=== PATIENT | male | born 1995 | race Caucasian/White ===

== ENCOUNTER 2022-01-21 09:00 | Inpatient (IN) | payer SELFPAY ==
[~2022-01-21] VITALS: Ht 182.9 cm; Wt 61.2 kg
[2022-01-21] MEDS ORDERED: KETOROLAC 30MG/ML VIAL IV STA (09:26)
[2022-01-21] MEDS ORDERED: ONDANSETRON HCL 4MG/2ML INJ IV ONE (09:30)
[2022-01-21] MEDS ORDERED: SODIUM CHLORIDE 0.9% 1,000 ML IV ONE (09:30)
[2022-01-21 09:51] LABS: BASOPHILS % 0.4 % (0.0-2.0); EOSINOPHILS % 0.1 % (0.0-5.0); HEMATOCRIT. 40.9 % (42.0-52.0); HEMOGLOBIN. 13.7 g/dL (14.0-18.0); LYMPHOCYTES % 10.7 % (20.0-50.0); MEAN CORPUSCULAR HEMOGLOBIN 30.2 pg (28.0-32.0); MEAN CORPUSCULAR VOLUME 89.9 fL (80.0-94.0); MEAN PLATELET VOLUME 8.7 fl (7.4-10.4); MONOCYTES % 6.7 % (2.0-8.0); NEUTROPHILS % 82.1 % (40.0-76.0); PLATELET 272 x1000/uL (130-400); RED BLOOD CELL COUNT 4.55 mill/uL (4.7-6.1); RED CELL DISTRIBUTION WIDTH 13.9 % (11.6-14.6)
[2022-01-21 09:58] LABS: CHLORIDE 102 mEq/L (98-107)
[2022-01-21] MEDS ORDERED: KCL 20MEQ/100ML PREMIX 100 ML IV ONE (10:45)
[2022-01-21] MEDS ORDERED: MAGNESIUM 1 G PREMIX 100 ML IV ONE (10:45)
[2022-01-21] MEDS ORDERED: POTASSIUM CHLORIDE 20MEQ TABLET SR PO ONE (11:15)
[2022-01-21 12:17] LABS: CLARITY URINE CLOUDY (CLEAR); COLOR URINE YELLOW (YELLOW); KETONES URINE 4+ (NEGATIVE); LEUKOCYTE ESTERASE URINE TRACE (NEGATIVE); NITRITE URINE NEGATIVE (NEGATIVE); OCCULT BLOOD URINE NEGATIVE (NEGATIVE); PH URINE 6.5 (4.5-8.0); PROTEIN URINE 1+ (NEGATIVE)
[2022-01-21] MEDS ORDERED: CEFTRIAXONE 1 G PREMIX 50 ML IV ONE (13:00)
[2022-01-21] MEDS ORDERED: KETOROLAC 30MG/ML VIAL IV PRN (15:45)
[2022-01-21] MEDS ORDERED: ONDANSETRON HCL 4MG/2ML INJ IV PRN (15:45)
[2022-01-21] MEDS ORDERED: CLONIDINE 0.1MG TABLET PO PRN (15:45)
[2022-01-21] MEDS ORDERED: DIPHENHYDRAMINE 50MG/ML VIAL IV PRN (15:45)
[2022-01-21] MEDS ORDERED: ZOLPIDEM TARTRATE 5MG TABLET PO PRN (15:45)
[2022-01-21] MEDS ORDERED: ACETAMINOPHEN 325MG TABLET PO PRN ×2 (15:45)
[2022-01-21] MEDS: KCL 20MEQ/100ML PREMIX 100 ML IV SCH ×2 (16:00→18:00)
[2022-01-21 18:00] VITALS: BP 112/63
[2022-01-21] MEDS: SODIUM CHLORIDE 0.9% 1,000 ML IV SCH (19:40)
[2022-01-21 20:00] VITALS: BP 110/73
[2022-01-21] MEDS ORDERED: POTASSIUM CHLORIDE INJ 40 MEQ in DEXT 5% WATER 250 ML IV NR (22:00)
[2022-01-21] MEDS: PANTOPRAZOLE SODIUM 40 MG/VIAL IV SCH (22:01)
[2022-01-22] VITALS: BP_SYST 100; BP_SYST 132; BP_DIAS 50; BP_DIAS 54
[2022-01-22 03:41] VITALS: BP 96/53
[2022-01-22 07:09] LABS: BASOPHILS % 0.7 % (0.0-2.0); EOSINOPHILS % 1.5 % (0.0-5.0); HEMATOCRIT. 39.6 % (42.0-52.0); LYMPHOCYTES % 25.5 % (20.0-50.0); MEAN CORPUSCULAR HEMOGLOBIN 29.7 pg (28.0-32.0); MEAN CORPUSCULAR VOLUME 90.6 fL (80.0-94.0); MEAN PLATELET VOLUME 9.4 fl (7.4-10.4); MONOCYTES % 8.7 % (2.0-8.0); NEUTROPHILS % 63.6 % (40.0-76.0); PLATELET 248 x1000/uL (130-400); RED BLOOD CELL COUNT 4.38 mill/uL (4.7-6.1); RED CELL DISTRIBUTION WIDTH 13.8 % (11.6-14.6)
[2022-01-22 07:29] LABS: CHLORIDE 105 mEq/L (98-107)
[2022-01-22 07:40] LABS: PHOSPHORUS 2.2 mg/dL (2.5-4.9)
[2022-01-22 07:47] LABS: *AMPHETAMINES SCREEN URINE NEGATIVE (NEGATIVE); *BARBITURATES SCREEN URINE NEGATIVE (NEGATIVE); *BENZODIAZEPINES SCREEN URINE NEGATIVE (NEGATIVE); *COCAINE SCREEN URINE NEGATIVE (NEGATIVE); CANNABINOID URINE SCREEN PRESUMTIVE POSITIVE (NEGATIVE); METHADONE URINE SCREEN NEGATIVE (NEGATIVE); OPIATES URINE SCREEN NEGATIVE (NEGATIVE); PHENCYCLIDINE URINE SCREEN NEGATIVE (NEGATIVE)
[2022-01-22 08:00] VITALS: BP 102/65
[2022-01-22] MEDS: PANTOPRAZOLE SODIUM 40 MG/VIAL IV SCH (08:39)
[2022-01-22] MEDS: SODIUM CHLORIDE 0.9% 1,000 ML IV SCH ×3 (08:40→16:00)
[2022-01-22 12:00] VITALS: BP 106/64
[2022-01-22] MEDS ORDERED: POTASSIUM PHOS,M-BASIC-D-BASIC 15 MMOL in DEXT 5% WATER 245 ML IV ONE (13:00)
[2022-01-22 16:00] VITALS: BP 115/74
[2022-01-22 17:05] VITALS: BP 115/74
== END 2022-01-22 19:26 | disposition home or self-care (01) | DRG 249 ==
LOC: ER 09:00 → 6WST 14:35 → EDBEDREQTM 14:46 → EDBEDREQ 14:46 → ENRESERV 15:01
PROVIDERS: ADMIT Internal Medicine; ATTEND Internal Medicine
DX: A08.4 Viral intestinal infection, unspecified (principal); E83.39 Other disorders of phosphorus metabolism; N39.0 Urinary tract infection, site not specified; E87.6 Hypokalemia
CPT/HCPCS: 36415; 71045; 74176; 80053; 80305; 81003; 83735; 84100; 85025; 93005; 99285; C9113; J0696; J1885; J2405; J3475; J3480; J3490; J7030; J7060